=== PATIENT | male | born 1975 | race Caucasian/White ===

== ENCOUNTER 2018-03-31 11:52 | Emergency (ER) | payer SELFPAY ==
[2018-03-31 12:21] VITALS: RESP 20; TEMP 97.1; O2SAT 100
[2018-03-31 14:14] VITALS: BP 128/77; PULSE 80
== END 2018-03-31 14:10 | disposition home or self-care (01) | DRG 885 ==
LOC: ED 11:52
DX: F23 Brief psychotic disorder (principal)
CPT/HCPCS: 99282; 99283